=== PATIENT | female | born 1945 | race Caucasian/White ===

== ENCOUNTER 2024-05-13 05:45 | Emergency (ER) | payer MEDICARE, OTHER ==
[~2024-05-13] VITALS: Ht 165.1 cm; Wt 68.0 kg
[2024-05-13 06:15] LABS: Source, Urine Fem Cath
[2024-05-13 06:24] LABS: Appearance, Urine Clear (Clear); Bilirubin, Urine Neg (Neg); Blood, Urine Neg (Neg); Color, Urine Yellow (P-Yellow); Glucose Qualitative, Urine Neg (Neg); Ketones, Urine Neg (Neg); Leukocyte Esterase, Urine Neg (Neg); Nitrite, Urine Neg (Neg); Protein, Urine Neg (Neg); Urobilinogen, Urine NORM (Normal); pH, Urine 6.5 (5.0-8.0)
[2024-05-13 06:26] LABS: BASOPHILS ABSOLUTE AUTO 0.03 K/mm3 (0.00-0.23); BASOPHILS PERCENT AUTO 0 % (0-2); EOSINOPHILS ABSOLUTE AUTO 0.17 K/mm3 (0.00-0.68); EOSINOPHILS PERCENT AUTO 3 % (0-6); Hematocrit 41.7 % (33.0-51.0); IMMATURE GRAN ABSOLUTE AUTO 0.02 K/mm3 (0.00-0.10); IMMATURE GRAN PERCENT AUTO 0 % (0-1); LYMPHOCYTES ABSOLUTE AUTO 1.68 K/mm3 (0.84-5.20); LYMPHOCYTES PERCENT AUTO 25 % (21-46); MONOCYTES ABSOLUTE AUTO 0.68 K/mm3 (0.16-1.47); MONOCYTES PERCENT AUTO 10 % (4-13); Mean Corpuscular HGB 32.6 pg (26.0-34.0); Mean Corpuscular HGB Conc 33.6 g/dL (31.5-36.5); Mean Corpuscular Volume 97 fL (80-100); Mean Platelet Volume 9.3 fL (9.1-12.4); NEUTROPHILS ABSOLUTE AUTO 4.23 K/mm3 (1.96-9.15); NEUTROPHILS PERCENT AUTO 62 % (41-73); Platelet Count 196 K/mm3 (150-400); RDW Coefficient Variation 12.7 % (11.7-14.2); RDW Standard Deviation 45.6 fL (35.1-46.3); Red Blood Cell Count 4.29 M/mm3 (3.80-5.20); White Blood Cell Count 6.81 K/mm3 (4.00-11.30)
[2024-05-13 06:34] LABS: Albumin, Blood 3.8 g/dL (3.4-5.0); Albumin/Globulin Ratio 1.3 (0.8-1.8); Bilirubin, Total 0.8 mg/dL (0.1-1.0); Bun/Creatinine Ratio 19.4 (12.0-20.0); Calcium, Blood 9.4 mg/dL (8.5-10.1); Creatinine, Blood 1.03 mg/dL (0.40-1.00); Total Protein, Blood 6.8 g/dL (6.4-8.2)
[2024-05-13] MEDS ORDERED: RisperiDONE 1 MG Tab PO ONE (07:15)
== END 2024-05-13 10:18 | disposition home or self-care (01) ==
LOC: ER 05:45
PROVIDERS: Student in an Organized Health Care Education/Training Program
DX: S00.33XA Contusion of nose, initial encounter (principal); R04.0 Epistaxis; F03.90 Unspecified dementia, unspecified severity, without behavioral disturbance, psychotic disturbance, mood disturbance, and anxiety; E03.9 Hypothyroidism, unspecified; I10 Essential (primary) hypertension; W19.XXXA Unspecified fall, initial encounter; Z79.899 Other long term (current) drug therapy; Z88.0 Allergy status to penicillin; Z88.2 Allergy status to sulfonamides; Z88.1 Allergy status to other antibiotic agents; Z88.7 Allergy status to serum and vaccine; Z88.8 Allergy status to other drugs, medicaments and biological substances
CPT/HCPCS: 70450; 72125; 80053; 81003; 85025; 93005; 93010; 99284-25; A9270; P9612

== ENCOUNTER → 2024-05-25 | Outpatient (CLI) | payer MEDICARE, OTHER ==
[2024-05-26 11:38] LABS: Source, Urine Voided
[2024-05-26 13:06] LABS: Appearance, Urine Hazy (Clear); Bilirubin, Urine Neg (Neg); Blood, Urine Neg (Neg); Color, Urine Yellow (P-Yellow); Glucose Qualitative, Urine Neg (Neg); Ketones, Urine Neg (Neg); Leukocyte Esterase, Urine 3+ (Neg); Nitrite, Urine Neg (Neg); Protein, Urine 2+ (Neg); Specific Gravity, Urine 1.025 (1.003-1.022); Urobilinogen, Urine 1+ (Normal)
[2024-05-26 13:45] LABS: Amorphous Heavy (0-Heavy); Bacteria Many /hpf; Red Blood Cells, Urine 0-2 /hpf (0-2)
[2024-05-26 13:46] LABS: Mucus Heavy (0-Heavy); Squamous Epithelial Cells Few /hpf (Few)
== END | disposition home or self-care (01) ==
LOC: LAB 11:31 → LAB SHORT 11:31
PROVIDERS: Registered Nurse
DX: N39.0 Urinary tract infection, site not specified (principal)
CPT/HCPCS: 81001; 87086

== ENCOUNTER → 2024-06-03 | Outpatient (CLI) | payer MEDICARE, OTHER ==
[~2024-06-03] MED LIST: ACET325 PO; ACET500 PO; ALUM-MAG HYDROX30 M1 PO; CARVEDILOL6.25 MG PO; LOPE2C PO; NYSTRIT TOP; QUETIAPINE FUMA25 MG PO; SENNA LAXATIVE8.6 MG; TRAZ50 PO
[2024-06-03 10:50] LABS: Appearance, Urine Clear (Clear); Bilirubin, Urine Neg (Neg); Blood, Urine Neg (Neg); Color, Urine Yellow (P-Yellow); Glucose Qualitative, Urine Neg (Neg); Ketones, Urine Neg (Neg); Leukocyte Esterase, Urine 2+ (Neg); Nitrite, Urine Neg (Neg); Protein, Urine 2+ (Neg); Urobilinogen, Urine 1+ (Normal)
[2024-06-03 11:29] LABS: Bacteria Few /hpf; Red Blood Cells, Urine 0-2 /hpf (0-2); Squamous Epithelial Cells Few /hpf (Few)
== END | disposition home or self-care (01) ==
LOC: LAB 06:30 → LAB SHORT 06:30
PROVIDERS: Registered Nurse
DX: N39.0 Urinary tract infection, site not specified (principal)
CPT/HCPCS: 81001; 87086

== ENCOUNTER 2024-06-06 00:43 | Emergency (ER) | payer MEDICARE, OTHER ==
[~2024-06-06] VITALS: Ht 165.1 cm; Wt 79.4 kg
[2024-06-06 01:18] LABS: BASOPHILS ABSOLUTE AUTO 0.03 K/mm3 (0.00-0.23); BASOPHILS PERCENT AUTO 0 % (0-2); EOSINOPHILS ABSOLUTE AUTO 0.28 K/mm3 (0.00-0.68); EOSINOPHILS PERCENT AUTO 4 % (0-6); Hematocrit 38.6 % (33.0-51.0); Hemoglobin 12.8 g/dL (11.5-16.0); IMMATURE GRAN ABSOLUTE AUTO 0.03 K/mm3 (0.00-0.10); IMMATURE GRAN PERCENT AUTO 0 % (0-1); LYMPHOCYTES ABSOLUTE AUTO 1.86 K/mm3 (0.84-5.20); LYMPHOCYTES PERCENT AUTO 26 % (21-46); MONOCYTES ABSOLUTE AUTO 0.76 K/mm3 (0.16-1.47); MONOCYTES PERCENT AUTO 11 % (4-13); Mean Corpuscular HGB 32.3 pg (26.0-34.0); Mean Corpuscular HGB Conc 33.2 g/dL (31.5-36.5); Mean Corpuscular Volume 98 fL (80-100); Mean Platelet Volume 9.8 fL (9.1-12.4); NEUTROPHILS ABSOLUTE AUTO 4.15 K/mm3 (1.96-9.15); NEUTROPHILS PERCENT AUTO 58 % (41-73); Platelet Count 183 K/mm3 (150-400); RDW Coefficient Variation 12.8 % (11.7-14.2); RDW Standard Deviation 45.9 fL (35.1-46.3); Red Blood Cell Count 3.96 M/mm3 (3.80-5.20); White Blood Cell Count 7.11 K/mm3 (4.00-11.30)
[2024-06-06] MEDS ORDERED: TRAZ50 PO (01:24)
[2024-06-06] MEDS ORDERED: CARVEDILOL6.25 MG PO (01:25)
[2024-06-06] MEDS ORDERED: NYSTRIT TOP (01:25)
[2024-06-06] MEDS ORDERED: QUETIAPINE FUMA25 MG PO (01:25)
[2024-06-06] MEDS ORDERED: ACET325 PO (01:26)
[2024-06-06] MEDS ORDERED: ALUM-MAG HYDROX30 M1 PO (01:26)
[2024-06-06] MEDS ORDERED: SENNA LAXATIVE8.6 MG (01:27)
[2024-06-06] MEDS ORDERED: LOPE2C PO (01:27)
[2024-06-06 01:36] LABS: International Normalized Ratio 0.97; Prothrombin Time Results 10.4 Sec (9.7-11.5)
[2024-06-06 02:01] LABS: Bun/Creatinine Ratio 16.3 (12.0-20.0); Calcium, Blood 9.8 mg/dL (8.5-10.1); Creatinine, Blood 1.29 mg/dL (0.40-1.00); Free Thyroxine 1.18 ng/dL (0.70-1.60); Magnesium, Blood 2.5 mg/dL (1.6-2.4); Thyroid Stimulating Hormone 2.44 uIU/mL (0.360-4.800)
[2024-06-06] MEDS ORDERED: ACET500 PO (04:52)
[2024-06-08 02:19] LABS: MYOGLOBIN SERUM 164 ng/mL (<=58)
== END 2024-06-06 06:10 | disposition home or self-care (01) ==
LOC: ER 00:43
PROVIDERS: Emergency Medicine
DX: M25.561 Pain in right knee (principal); M25.552 Pain in left hip; M47.812 Spondylosis without myelopathy or radiculopathy, cervical region; I10 Essential (primary) hypertension; E03.9 Hypothyroidism, unspecified; Z88.0 Allergy status to penicillin; Z88.2 Allergy status to sulfonamides; Z88.1 Allergy status to other antibiotic agents; Z88.8 Allergy status to other drugs, medicaments and biological substances; Z88.7 Allergy status to serum and vaccine
CPT/HCPCS: 70450; 71260; 72125; 73560-RT; 74177; 80048; 82550; 82607; 83735; 83874; 83880; 84439; 84443; 85025; 85610; 85730; 99284-25; Q9967

== ENCOUNTER 2024-06-11 10:42 | Emergency (ER) | payer MEDICARE, OTHER ==
[~2024-06-11] VITALS: Ht 154.9 cm; Wt 68.0 kg
[2024-06-11] MEDS ORDERED: LORazepam 2 MG/ML 1ML Injection IV ONE (11:05)
[2024-06-11 11:29] LABS: BASOPHILS ABSOLUTE AUTO 0.03 K/mm3 (0.00-0.23); BASOPHILS PERCENT AUTO 0 % (0-2); EOSINOPHILS ABSOLUTE AUTO 0.23 K/mm3 (0.00-0.68); EOSINOPHILS PERCENT AUTO 3 % (0-6); Hematocrit 36.5 % (33.0-51.0); Hemoglobin 12.1 g/dL (11.5-16.0); IMMATURE GRAN ABSOLUTE AUTO 0.02 K/mm3 (0.00-0.10); IMMATURE GRAN PERCENT AUTO 0 % (0-1); LYMPHOCYTES ABSOLUTE AUTO 1.55 K/mm3 (0.84-5.20); LYMPHOCYTES PERCENT AUTO 23 % (21-46); MONOCYTES PERCENT AUTO 13 % (4-13); Mean Corpuscular HGB 32.1 pg (26.0-34.0); Mean Corpuscular HGB Conc 33.2 g/dL (31.5-36.5); Mean Corpuscular Volume 97 fL (80-100); Mean Platelet Volume 10.4 fL (9.1-12.4); NEUTROPHILS ABSOLUTE AUTO 4.02 K/mm3 (1.96-9.15); NEUTROPHILS PERCENT AUTO 60 % (41-73); Platelet Count 201 K/mm3 (150-400); RDW Standard Deviation 46.2 fL (35.1-46.3); Red Blood Cell Count 3.77 M/mm3 (3.80-5.20); White Blood Cell Count 6.75 K/mm3 (4.00-11.30)
[2024-06-11 11:37] LABS: Source, Urine Clean Catch
[2024-06-11 11:41] LABS: Appearance, Urine Clear (Clear); Blood, Urine Neg (Neg); Color, Urine Yellow (P-Yellow); Glucose Qualitative, Urine Neg (Neg); Ketones, Urine Neg (Neg); Leukocyte Esterase, Urine 1+ (Neg); Nitrite, Urine Neg (Neg); Protein, Urine 2+ (Neg); Urobilinogen, Urine 2+ (Normal)
[2024-06-11] MEDS ORDERED: Furosemide 10 MG / ML 2ML Vial IV ONE (11:50)
[2024-06-11 11:58] LABS: Bilirubin, Urine 1+ (Neg)
[2024-06-11 11:59] LABS: Albumin, Blood 3.4 g/dL (3.4-5.0); Albumin/Globulin Ratio 1.3 (0.8-1.8); Bilirubin, Total 0.5 mg/dL (0.1-1.0); Bun/Creatinine Ratio 15.1 (12.0-20.0); Calcium, Blood 9.5 mg/dL (8.5-10.1); Creatinine, Blood 1.52 mg/dL (0.40-1.00); Free Thyroxine 1.18 ng/dL (0.70-1.60); Globulin, Blood 2.7 g/dL (2.2-4.0); Potassium, Blood 3.9 mmol/L (3.5-5.5); Thyroid Stimulating Hormone 5.37 uIU/mL (0.360-4.800); Total Protein, Blood 6.1 g/dL (6.4-8.2)
[2024-06-11 11:59] LABS: Bacteria Many /hpf; Red Blood Cells, Urine 0-2 /hpf (0-2); Squamous Epithelial Cells Rare /hpf (Few); White Blood Cells, Urine 0-2 /hpf (0-5)
[2024-06-11] MEDS ORDERED: Nitrofurantoin/Nitrofuran Mac 100 MG Cap PO ONE (12:35)
[2024-06-11] MEDS ORDERED: NITR100CA PO (14:14)
[2024-06-11] MEDS ORDERED: DOXY100 PO (14:14)
[2024-06-12] MEDS ORDERED: MIRALAX17 GM PO (11:58)
== END 2024-06-11 15:34 | disposition home or self-care (01) ==
LOC: ER 10:42
PROVIDERS: Emergency Medicine
DX: N39.0 Urinary tract infection, site not specified (principal); E03.9 Hypothyroidism, unspecified; I10 Essential (primary) hypertension; Z79.899 Other long term (current) drug therapy; Z88.2 Allergy status to sulfonamides; Z88.0 Allergy status to penicillin; Z88.1 Allergy status to other antibiotic agents; Z88.7 Allergy status to serum and vaccine; Z88.8 Allergy status to other drugs, medicaments and biological substances
CPT/HCPCS: 71045; 80053; 81001; 83880; 84439; 84443; 85025; 87086; 93005; 93010; 93971; 96374; 96375; 99285-25; A9270; J1940; J2060; P9612

== ENCOUNTER 2024-06-12 10:12 | Emergency (ER) | payer MEDICARE, OTHER ==
[~2024-06-12] VITALS: Ht 162.6 cm; Wt 79.4 kg
[~2024-06-12 10:12] MED LIST changes: +DOXY100 PO; +NITR100CA PO
[2024-06-12] MEDS ORDERED: MIRALAX17 GM PO (11:58)
== END 2024-06-12 16:04 | disposition home or self-care (01) ==
LOC: ER 10:12
DX: S12.301A Unspecified nondisplaced fracture of fourth cervical vertebra, initial encounter for closed fracture (principal); F03.90 Unspecified dementia, unspecified severity, without behavioral disturbance, psychotic disturbance, mood disturbance, and anxiety; I10 Essential (primary) hypertension; Z88.0 Allergy status to penicillin; Z88.2 Allergy status to sulfonamides; Z88.1 Allergy status to other antibiotic agents; Z88.7 Allergy status to serum and vaccine; Z88.8 Allergy status to other drugs, medicaments and biological substances; Z79.899 Other long term (current) drug therapy; Z91.81 History of falling; W18.30XA Fall on same level, unspecified, initial encounter
CPT/HCPCS: 70450; 72125; 99284-25

== ENCOUNTER 2024-07-07 17:48 | Inpatient (IN) | payer MEDICARE, OTHER ==
[~2024-07-07] VITALS: Ht 172.7 cm; Wt 72.6 kg
[~2024-07-07 17:48] MED LIST changes: +MIRALAX17 GM PO
[2024-07-07] MEDS ORDERED: Diphth,Pertuss(Acell),Tet Vac 0.5 ML VIAL IM ONE (19:15)
[2024-07-07] MEDS ORDERED: FUROSEMIDE40 MG PO (19:17)
[2024-07-07 19:58] LABS: BASOPHILS ABSOLUTE AUTO 0.05 K/mm3 (0.00-0.23); BASOPHILS PERCENT AUTO 0 % (0-2); EOSINOPHILS ABSOLUTE AUTO 0.26 K/mm3 (0.00-0.68); EOSINOPHILS PERCENT AUTO 2 % (0-6); Hematocrit 40.9 % (33.0-51.0); Hemoglobin 13.7 g/dL (11.5-16.0); IMMATURE GRAN ABSOLUTE AUTO 0.12 K/mm3 (0.00-0.10); IMMATURE GRAN PERCENT AUTO 1 % (0-1); LYMPHOCYTES ABSOLUTE AUTO 1.72 K/mm3 (0.84-5.20); LYMPHOCYTES PERCENT AUTO 13 % (21-46); MONOCYTES ABSOLUTE AUTO 1.38 K/mm3 (0.16-1.47); MONOCYTES PERCENT AUTO 11 % (4-13); Mean Corpuscular HGB 32.2 pg (26.0-34.0); Mean Corpuscular HGB Conc 33.5 g/dL (31.5-36.5); Mean Corpuscular Volume 96 fL (80-100); Mean Platelet Volume 9.6 fL (9.1-12.4); NEUTROPHILS ABSOLUTE AUTO 9.28 K/mm3 (1.96-9.15); NEUTROPHILS PERCENT AUTO 73 % (41-73); Platelet Count 177 K/mm3 (150-400); RDW Coefficient Variation 13.2 % (11.7-14.2); RDW Standard Deviation 46.4 fL (35.1-46.3); Red Blood Cell Count 4.25 M/mm3 (3.80-5.20); White Blood Cell Count 12.81 K/mm3 (4.00-11.30)
[2024-07-07 20:03] LABS: Source, Urine Clean Catch
[2024-07-07 20:06] LABS: Appearance, Urine Cloudy (Clear); Bilirubin, Urine Neg (Neg); Blood, Urine 4+ (Neg); Color, Urine Yellow (P-Yellow); Glucose Qualitative, Urine Neg (Neg); Ketones, Urine Neg (Neg); Leukocyte Esterase, Urine 3+ (Neg); Nitrite, Urine Neg (Neg); Protein, Urine 2+ (Neg); Urobilinogen, Urine 3+ (Normal)
[2024-07-07 20:19] LABS: White Blood Cells, Urine TNTC /hpf (0-5)
[2024-07-07 20:19] LABS: Albumin, Blood 2.5 g/dL (3.4-5.0); Albumin/Globulin Ratio 0.7 (0.8-1.8); Bilirubin, Total 0.8 mg/dL (0.1-1.0); Calcium, Blood 9.4 mg/dL (8.5-10.1); Creatinine, Blood 1.23 mg/dL (0.40-1.00); Globulin, Blood 3.7 g/dL (2.2-4.0); Potassium, Blood 3.7 mmol/L (3.5-5.5); Total Protein, Blood 6.2 g/dL (6.4-8.2)
[2024-07-07 20:21] LABS: Bacteria Many /hpf; Squamous Epithelial Cells Few /hpf (Few); Transitional Epithelial Cells Few /hpf (0-Rare)
[2024-07-07] MEDS ORDERED: Nitrofurantoin/Nitrofuran Mac 100 MG Cap PO ONE (21:15)
[2024-07-07] MEDS ORDERED: CefTRIAXone Sodium 1,000 MG in NS 50 ML IV ONE (21:20)
[2024-07-07 22:02] LABS: CORONAVIRUS COVID-19 AG Negative (NEGATIVE); INFLUENZA A AG Negative (NEGATIVE); INFLUENZA B AG Negative (NEGATIVE)
[2024-07-08] VITALS (19 sets, daily range): BP systolic 95–221; BP diastolic 41–153
--- NOTE | 2024-07-08 04:54 | NUR ---
SHIFT SUMMARY 79 YR F ADMITTED TO MEDICAL FLOOR THIS SHIFT. DNR. PT HAS A RIGHT HIP FX AND IS IN A GREAT DEAL OF PAIN WITH ANY MOVEMENT AT ALL. OF NOW SHE HAS NO PAIN MEDS AVAILABLE AND HOSPITALIST IS UNAVAILABLE. PT HAS SEVERE DIMENTIA AND IS UNABLE TO COMMUNICATE VERBALLY BUT SHE YELLS OUT IN PAIN ANY TIME SHE IS TOUCHED. DAUGHTER STATES HER DIMENTIA HAS GOTTEN ALOT WORSE LATELY. SHE HAS LARGE BLISTERS ON BOTH OF HER HEELS. MEPILEX HEEL PROTECTORS APPLIED. DAUGHTER STAYED IN ROOM THROUGHOUT THE NIGHT. WILL CONTINUE TO MONITOR. BED IN LOW POSITION AND CALL LIGHT IN REACH.
[2024-07-08 05:08] LABS: BASOPHILS ABSOLUTE AUTO 0.03 K/mm3 (0.00-0.23); BASOPHILS PERCENT AUTO 0 % (0-2); EOSINOPHILS ABSOLUTE AUTO 0.26 K/mm3 (0.00-0.68); EOSINOPHILS PERCENT AUTO 3 % (0-6); Hematocrit 39.7 % (33.0-51.0); Hemoglobin 12.9 g/dL (11.5-16.0); IMMATURE GRAN PERCENT AUTO 1 % (0-1); LYMPHOCYTES PERCENT AUTO 14 % (21-46); MONOCYTES ABSOLUTE AUTO 1.21 K/mm3 (0.16-1.47); MONOCYTES PERCENT AUTO 12 % (4-13); Mean Corpuscular HGB 31.9 pg (26.0-34.0); Mean Corpuscular HGB Conc 32.5 g/dL (31.5-36.5); Mean Corpuscular Volume 98 fL (80-100); Mean Platelet Volume 10.3 fL (9.1-12.4); NEUTROPHILS ABSOLUTE AUTO 7.14 K/mm3 (1.96-9.15); NEUTROPHILS PERCENT AUTO 70 % (41-73); Platelet Count 169 K/mm3 (150-400); RDW Coefficient Variation 12.9 % (11.7-14.2); RDW Standard Deviation 46.2 fL (35.1-46.3); Red Blood Cell Count 4.05 M/mm3 (3.80-5.20); White Blood Cell Count 10.14 K/mm3 (4.00-11.30)
[2024-07-08 06:18] LABS: Calcium, Blood 9.2 mg/dL (8.5-10.1); Creatinine, Blood 1.18 mg/dL (0.40-1.00); Potassium, Blood 4.1 mmol/L (3.5-5.5)
[2024-07-08] MEDS ORDERED: FentaNYL Citrate 50 MCG/ML 2 ML Injection IV PRN (07:45)
[2024-07-08] MEDS ORDERED: Enoxaparin 40 MG/0.4 ML SYR SC SCH (09:00)
[2024-07-08] MEDS ORDERED: FentaNYL Citrate 50 MCG/ML 2 ML Injection ONE ×2 (12:32→14:43)
[2024-07-08] MEDS ORDERED: propofoL 20 ML IV ONE (12:32)
[2024-07-08] MEDS ORDERED: Dexamethasone Sod Phos 10 MG/ML 1ML VIAL ONE (12:33)
[2024-07-08] MEDS ORDERED: Ondansetron HCl 2 MG / ML 2ML Vial ONE (12:33)
[2024-07-08] MEDS ORDERED: Lidocaine HCl 2% 20 ML MDV ONE (12:34)
[2024-07-08] MEDS ORDERED: Lactated Ringer's 1,000 ML IV SCH ×2 (12:35→18:45)
[2024-07-08] MEDS ORDERED: Ropivacaine 0.5% HCl/Pf 123.125 MG,EPINEPHrine HCL 0.25 MG,Ketorolac Tromethamine 15 MG... INFIL SCH (14:00)
[2024-07-08] MEDS ORDERED: Tranexamic Acid 1,000 MG in NS 100 ML IV SCH (14:00)
[2024-07-08] MEDS ORDERED: Phenylephrine HCl 100 MCG/ML-NS 10MLSYR (1MG/10ML) ONE (14:43)
--- NOTE | 2024-07-08 17:40 | NUR ---
SHIFT SUMMARY: PT ARRIVED BACK FROM SURGERY AT 1630. PT RESPONDS TO VERBAL STIMULI. RADIOLOGY HERE TO DO X-RAYS. ASSISTED RADOLOGY TECH WITH POSITIONING PT. PT IS SHOWING S/S F PAIN WITH MOVEMENT BUT DOES NOT SHW S/S OF PAIN WHEN AT REST. WHEN CMPLETED PT POSITIONED N LEFT SIDE. FEET FLOATED ON PILLOWS. VITALS TAKEN AND WNL. PT ON RA RR ARE E/U. AQUACELL DRESSING IN PLACE TO R HIP AND CDI. FAMILY ARE IN WAITING AREA AND UPDATED WITH PT STATUS. FAMILY EDUCATED ON POC. FAMILY LEFT TO GO EAT DINNER. PER DAUGHTER KHADAR, SHE WOULD LIKE TO BE NOTIFIED IF HER MOM NEEDS ADDITONAL EMOTIONAL SUPPORT. HER NUMBER IS IN SYSTEM AND ON WHITE BOARD IN ROOM.
[2024-07-08] MEDS ORDERED: Tranexamic Acid 100 ML IV ONE (17:55)
[2024-07-08] MEDS ORDERED: NS 250 ML IV PRN (18:05)
[2024-07-08] MEDS ORDERED: CefTRIAXone Sodium 1,000 MG in NS 100 ML IV SCH (21:00)
[2024-07-09 03:30] VITALS: BP 112/90
[2024-07-09 05:28] LABS: BASOPHILS ABSOLUTE AUTO 0.01 K/mm3 (0.00-0.23); BASOPHILS PERCENT AUTO 0 % (0-2); EOSINOPHILS ABSOLUTE AUTO 0.01 K/mm3 (0.00-0.68); EOSINOPHILS PERCENT AUTO 0 % (0-6); Hematocrit 35.5 % (33.0-51.0); Hemoglobin 11.9 g/dL (11.5-16.0); IMMATURE GRAN ABSOLUTE AUTO 0.16 K/mm3 (0.00-0.10); IMMATURE GRAN PERCENT AUTO 1 % (0-1); LYMPHOCYTES PERCENT AUTO 9 % (21-46); MONOCYTES ABSOLUTE AUTO 0.83 K/mm3 (0.16-1.47); MONOCYTES PERCENT AUTO 7 % (4-13); Mean Corpuscular HGB 32.7 pg (26.0-34.0); Mean Corpuscular HGB Conc 33.5 g/dL (31.5-36.5); Mean Corpuscular Volume 98 fL (80-100); NEUTROPHILS ABSOLUTE AUTO 9.38 K/mm3 (1.96-9.15); NEUTROPHILS PERCENT AUTO 82 % (41-73); Platelet Count 176 K/mm3 (150-400); RDW Coefficient Variation 12.9 % (11.7-14.2); RDW Standard Deviation 46.1 fL (35.1-46.3); Red Blood Cell Count 3.64 M/mm3 (3.80-5.20); White Blood Cell Count 11.39 K/mm3 (4.00-11.30)
[2024-07-09 05:58] LABS: Bun/Creatinine Ratio 25.2 (12.0-20.0); Calcium, Blood 9.1 mg/dL (8.5-10.1); Creatinine, Blood 1.15 mg/dL (0.40-1.00); Potassium, Blood 5.2 mmol/L (3.5-5.5)
--- NOTE | 2024-07-09 06:23 | NUR ---
SHIFT SUMMARY PT VERY DROWSY THROUGH THE NIGHT. NOT ANSWERING ANY QUESTIONS, DOES NOT APPEAR ORIENTED. PT CRIES OUT WITH ANY ACTIVITY OR CARE- CALMS WITH VERBAL REASSUREANCE AND HAND HOLDING. PT QUICKLY BACK TO SLEEP. AT APPROX 0400, PT CRYING OUT WHEN ALONE IN ROOM, PT STATING "IT HURTS." MEDICATED WITH FENTANYL PER EMAR. PT RESTING AFTER DOSE GIVEN. UNABLE TO GIVE PT ORAL FLUIDS- PT FIGHTING/ TENSE WITH ORAL CARE. THIS AM PT STATED "YES" WHEN ASKED IF SHE WANTED SOME COLD WATER TO DRINK, BUT TENSED AND CLOSED LIPS WHEN OFFERED FLUIDS. IVF INFUSING PER ORDER. O2 WEANED FROM 2L TO 1LNC. SANCHES CATHETER WITH DARK DAVI URINE, ONLY 250ML DRAINED. PT TURNED AND REPOSITIONED THROUGHOUT THE NIGHT. DRESSING TO ANTERIOR HIP C/D/I. BED ALARM ON, BED IN LOWEST POSITION, CALL LIGHT WITHIN REACH, SIDE RAILS UP X2.
[2024-07-09 07:31] VITALS: BP 107/73
[2024-07-09 15:28] VITALS: BP 132/106
[2024-07-09] MEDS ORDERED: HYDROmorphone HCl/Pf 1MG SYR IV PRN (16:00)
[2024-07-09] MEDS ORDERED: Meropenem 1,000 MG in NS 100 ML IV SCH (16:00)
--- NOTE | 2024-07-09 19:24 | NUR ---
SHIFT SUMMARY PATIENT MEDICATED FOR PAIN THROUGHOUT SHIFT. SCANT URINE OUTPUT. DR MCGOVERN MADE AWARE. CONTACT PRECUATIONS FOR ESBL. SHE IS REFUSING EVENWATER, ONLY TOOK 2 SIPS TODAY. PAIN MEDICATION CHANGED TO DILAUDED THIS AFTERNOON AND PATIENT WAS ABLE TO REST COMFORTABLY IN BED IN A RELAXED QUIET STATE. BED IN LOW POSITION. FREQEUNT ROUNDING PROVIDED, FAMILY AT BEDSIDE.
[2024-07-09 19:52] VITALS: BP 93/35
[2024-07-09 19:53] VITALS: BP 98/37
[2024-07-09 20:13] VITALS: BP 102/56
[2024-07-10 01:34] VITALS: BP 112/61
[2024-07-10] MEDS ORDERED: ALUM-MAG HYDROX30 M1 PO (01:57)
[2024-07-10] MEDS ORDERED: FURO40 PO (02:00)
[2024-07-10] MEDS ORDERED: SEROQUEL25 MG PO (02:03)
[2024-07-10] MEDS ORDERED: SENNA LAXATIVE8.6 MG PO (02:05)
[2024-07-10 05:34] VITALS: BP 102/45
--- NOTE | 2024-07-10 06:23 | NUR ---
SHIFT SUMMARY DRESSING TO RIGHT ANTERIOR HIP REMAINS C/D/I. MEPILEX INTACT TO NAHID. HEELS UNDERNEATH LISA HOSE. MEDICATED FOR PAIN PER EMAR. PT DROWSY AFTER PAIN MEDS GIVEN. PT CONTINUES TO COUNT AND NAME MONTHS- THIS IS MOST OF HER VOCALIZATION. PT DOES SAY "NO" AND "STOP THAT" WITH SOME CARE, SUCH VITAL SIGNS AND REPOSITIONING. PT REFUSING MOST OFFERS OF PO FLUIDS, BUT DID DRINK ABOUT 1/2 OF AN 8 OUNCE BOTTLE OF ENSURE. URINE OUTPUT REAINS LOW. SANCHES DRAINING DAVI COLOR URINE. CONTACT ISOLATION MAINTAINED FOR ESBL+. BED IN LOWEST POSITION, CALL LIGHT WITHIN REACH, SIDE RAILS UP X2.
[2024-07-10 06:27] LABS: BASOPHILS ABSOLUTE AUTO 0.04 K/mm3 (0.00-0.23); BASOPHILS PERCENT AUTO 0 % (0-2); EOSINOPHILS ABSOLUTE AUTO 0.22 K/mm3 (0.00-0.68); EOSINOPHILS PERCENT AUTO 2 % (0-6); Hematocrit 33.7 % (33.0-51.0); Hemoglobin 10.6 g/dL (11.5-16.0); IMMATURE GRAN ABSOLUTE AUTO 0.18 K/mm3 (0.00-0.10); IMMATURE GRAN PERCENT AUTO 2 % (0-1); LYMPHOCYTES ABSOLUTE AUTO 1.52 K/mm3 (0.84-5.20); LYMPHOCYTES PERCENT AUTO 16 % (21-46); MONOCYTES ABSOLUTE AUTO 1.08 K/mm3 (0.16-1.47); MONOCYTES PERCENT AUTO 12 % (4-13); Mean Corpuscular HGB 31.4 pg (26.0-34.0); Mean Corpuscular HGB Conc 31.5 g/dL (31.5-36.5); Mean Corpuscular Volume 100 fL (80-100); NEUTROPHILS ABSOLUTE AUTO 6.34 K/mm3 (1.96-9.15); NEUTROPHILS PERCENT AUTO 68 % (41-73); Platelet Count 193 K/mm3 (150-400); RDW Coefficient Variation 13.2 % (11.7-14.2); RDW Standard Deviation 48.3 fL (35.1-46.3); Red Blood Cell Count 3.38 M/mm3 (3.80-5.20); White Blood Cell Count 9.38 K/mm3 (4.00-11.30)
[2024-07-10 06:45] LABS: Bun/Creatinine Ratio 24.2 (12.0-20.0); Calcium, Blood 8.9 mg/dL (8.5-10.1); Creatinine, Blood 1.28 mg/dL (0.40-1.00); Potassium, Blood 4.1 mmol/L (3.5-5.5)
[2024-07-10 07:50] VITALS: BP 107/46
--- NOTE | 2024-07-10 13:51 | NUR ---
Met with pt's daughter Liam today after assessing the patient. Patient denies pain at this time, oriented to self, and pleasant. Liam is tearful, talks about the patient's decline. The family made the decision to place the patient at [facility] 2 months ago given her increasing dementia. After several falls, the patient became wheelchair bound, and x-ray showed R hip fracture. This was repaired on 07/08, and pt is continuing to refuse food or fluids. The family is debating next steps, possibly will change the plan to comfort care due to pt's symptoms. We talked about hospice, and they have been told by the facility the patient can return, with or without hospice. Palliative care will contine with supportive visits.
[2024-07-10] MEDS ORDERED: Lactated Ringer's 1,000 ML IV SCH (14:50)
[2024-07-10 15:27] VITALS: BP 110/52
[2024-07-10] MEDS ORDERED: Acetaminophen 325 MG TABLET PO PRN (17:10)
[2024-07-10] MEDS ORDERED: HYDROmorphone HCl/Pf 1MG SYR IV PRN (17:15)
--- NOTE | 2024-07-10 18:10 | NUR ---
SHIFT SUMMARY PATIENT IN BED THIS SHIFT. ORIENTED TO SELF AND SOMETIMES FAMILY. INFUSING 1 LITER FLUID, TOLERATING ABX WELL. CONTINUE ON CONTACT ISOLATION FOR ESBL. SANCHES IN PLACE, FREELY DRAINING TO GRAVITY, DAVI COLORED URINE. DR JACOBS RECOMMENDED TO KEEP SANCHES IN PLACE THIS SHIFT. HEEL PROTECTORS IN PLACE TO BILTERAL HEELS, LISA HOSE ON. DID NOT ATTEMPT TO STAND PATIENT TODAY. YELLS OUT WITH TURNS AND POSITIONING. GIVEN PAIN MEDS PER MAR, DR CHAVEZAYED TO GIVE RANGE FOR DILAUDED AND ADD APAP. NOT ABLE TO MAKE NEEDS KNOWN. CALL LIGHT IN REACH, CARES ONGOING.
[2024-07-10 19:29] VITALS: BP 123/82
[2024-07-10] MEDS ORDERED: Lactobacil 2-S.Thermo-Bifido 1 1 Cap PO SCH (21:00)
[2024-07-11 03:41] VITALS: BP 119/56
[2024-07-11 05:12] LABS: BASOPHILS ABSOLUTE AUTO 0.04 K/mm3 (0.00-0.23); BASOPHILS PERCENT AUTO 1 % (0-2); EOSINOPHILS ABSOLUTE AUTO 0.34 K/mm3 (0.00-0.68); EOSINOPHILS PERCENT AUTO 5 % (0-6); Hematocrit 34.5 % (33.0-51.0); Hemoglobin 10.7 g/dL (11.5-16.0); IMMATURE GRAN ABSOLUTE AUTO 0.17 K/mm3 (0.00-0.10); IMMATURE GRAN PERCENT AUTO 3 % (0-1); LYMPHOCYTES ABSOLUTE AUTO 1.24 K/mm3 (0.84-5.20); LYMPHOCYTES PERCENT AUTO 19 % (21-46); MONOCYTES PERCENT AUTO 11 % (4-13); Mean Corpuscular HGB 31.4 pg (26.0-34.0); Mean Corpuscular Volume 101 fL (80-100); Mean Platelet Volume 9.7 fL (9.1-12.4); NEUTROPHILS ABSOLUTE AUTO 4.11 K/mm3 (1.96-9.15); NEUTROPHILS PERCENT AUTO 62 % (41-73); Platelet Count 191 K/mm3 (150-400); RDW Coefficient Variation 12.9 % (11.7-14.2); RDW Standard Deviation 47.9 fL (35.1-46.3); Red Blood Cell Count 3.41 M/mm3 (3.80-5.20)
--- NOTE | 2024-07-11 05:37 | NUR ---
SHIFT SUMMARY PT CRIES OUT/ YELLS WITH MOST CARE PROVIDED. PT TURNED AND REPOSITIONED THROUGH THE NIGHT, KEEPING HEELS FLOATED WITH PILLOWS. PT OPENS HER EYES TO SOUND, BUT DOES NOT FOLLOW MOST COMMANDS. PT STATES, "JUST LEAVE NOW" REPEATEDLY WITH MOST INTERACTION. TRIED TO ENCOURAGE PO FLUIDS, BUT PT ONLY TOOK A TOTAL OF 2 SIPS OF WATER THROUGH THE NIGHT. 2 LITERS IV LR INFUSED- STARTED PRIOR SHIFT. URINE OUTPUT IMPROVED TO 500 ML OUT THIS SHIFT. PT MEDICATED FOR PAIN USING FLACC SCALE PER EMAR. SLEPT LONG INTERVALS THROUGH NIGHT. BED IN LOWEST POSITION, CALL LIGHT WITHIN REACH, SIDE RAILS UP X2.
[2024-07-11 06:00] LABS: Bun/Creatinine Ratio 20.6 (12.0-20.0); Calcium, Blood 8.8 mg/dL (8.5-10.1); Creatinine, Blood 1.02 mg/dL (0.40-1.00); Potassium, Blood 5.1 mmol/L (3.5-5.5)
[2024-07-11 07:24] VITALS: BP 127/86
--- NOTE | 2024-07-11 11:24 | NUR ---
MORNING NOTE THIS RN ASSUMED CARE AT APPROX 0715. PATIENT LETHARGIC, EASILY AROUSABLE WITH STIMULI. MOANS/YELLS OUT WITH STIMULI. DOES EXPERIENCE PERIODS OF INCREASED WAKEFULNESS. ALERT AND ORIENTED TO SELF ONLY. UNABLE TO FOLLOW COMMANDS. VSS. R DAYNA HIP ARTHROPLASTY 07/08 - AQUACEL DRESSING C/D/I. MANAGING PAIN PER EMAR. BEDBATH PERFORMED THIS MORNING. Q2H REPOSITIONING. SANCHES CATHETER IN PLACE - DRAINING DAVI URINE TO GRAVITY. ENCOURAGING PO INTAKE DURING PERIODS OF INCREASED ALERTNESS. FAMILY AT BEDSIDE. CALL LIGHT IN REACH.
[2024-07-11 15:40] VITALS: BP 123/52
--- NOTE | 2024-07-11 17:34 | NUR ---
SHIFT SUMMARY NO ACUTE CHANGES SINCE MORNING NOTE. PATIENT SLEPT THROUGHOUT DAY, EASILY AROUSABLE WITH VERBAL STIMULI. CONTINUES TO YELL OUT WITH MOST STIMULI. FEARFUL OF STAFF AND INTERVENTIONS OF CARE, EASES WITH REDUCED STIMULI. PERIODS OF INCREASED WAKEFULNESS - ENCOURAGING PO INTAKE. FAMILY AT BEDSIDE THROUGHOUT DAY. VSS. SBP 120s. MAP >65. ON ROOM AIR, SATs >90%. RR EVEN, UNLABORED. SANCHES CATHETER DRAINING DAVI URINE TO GRAVITY. BEDBATH PERFORMED. AQUACEL DX TO R HIP C/D/I. MANAGING PAIN PER EMAR. Q2H REPOSITIONING. CALL LIGHT IN REACH. BED ALARM ON. WILL CONTINUE TO MONITOR AND REPORT TO ONCOMING RN.
[2024-07-11 19:59] VITALS: BP 121/58
--- NOTE | 2024-07-12 05:27 | NUR ---
SHIFT SUMMARY PT MORE ALERT AT THE START OF SHIFT- VISITING WITH DAUGHTER, EATING A COUPLE OF BITES OF GRAPES, AND DRINKING A COUPLE OF SIPS OF WATER. PT MORE IRRITABLE AFTER DAUGHTER LEFT. PT FEARFUL WITH ALL CARE, CRIES AND YELLS. PT REFUSED ANY MORE PO FLUIDS OR FOOD. PT REPOSITIONED THROUGH THE NIGHT. LISA HOSE REMOVED AND LEFT OFF. SCD'S ON BLE'S. MEPELEXES INTACT TO BILAT HEELS. HEELS FLOATED OFF OF BED WITH PILLOWS. SANCHES DRAINING LIGHT DAVI URINE. MEDICATED FOR PAIN WITH DILAUDID PER EMAR. PT SLEPT LONG INTERVALS THROUGH THE NIGHT. BED IN LOWEST POSITION, CALL LIGHT WITHIN REACH, SIDERAILS UP X2.
[2024-07-12 05:36] VITALS: BP 136/80
[2024-07-12 07:44] VITALS: BP 110/82
[2024-07-12 16:10] VITALS: BP 122/52
--- NOTE | 2024-07-12 17:52 | NUR ---
SHIFT SUMMARY: PT ORIENTED TO SELF. YELLS OUT AND ANXIOUS WITH ANY AND ALL CARE. ADMITTED FOR R. HIP FX. SURGERY COMPLETED June. AQUACEL DRESSING C/D/I. SANCHES IN PLACE DRAINING DAVI URINE TO GRAVITY. MEDICATED FOR PAIN TWICE THIS SHIFT. ON CONTACT FOR ESBL IN URINE. PLAN TO DISCHARGE ON HOSPICE TOMORROW BACK TO [facility]. FAMILY IN ROOM T/O SHIFT. CALL LIGHT IN REACH. BED IN LOWEST POSITION.
--- NOTE | 2024-07-13 04:38 | NUR ---
SHIFT SUMMARY ADMITTED FOR RIGHT HIP FRACTURE. DNR CODE. RIGHT DAYNA ARTHROPLASTY PERFORMED ON 07/08/23. ORTHO CONSULT IS DR. RAMÍREZ. SANCHES IN PLACE. IV ANTIB RX ARE SCHEDULED. PLAN IS FOR DC TODAY TO HER HOME FACILITY "[facility]" ON HOSPICE. SHE IS ON A REGULAR DIET, BUT REFUSES MOST INTAKE. SHE REFUSES MEDICATIONS AND VITALS. PALLIATIVE CARE IS CONSULTED. ON RA. SHE SCREAMS AND CRIES WITH EVEN THE SLIGHTEST TOUCH. HX OF DEMENTIA. I HAVE MEDICATED HER FOR PAIN THIS SHIFT, SEE EMAR.
[2024-07-13] MEDS ORDERED: LOPE2C PO (07:25)
[2024-07-13] MEDS ORDERED: NITR100CA PO (07:26)
[2024-07-13] MEDS ORDERED: VISBIOME 112.51 EACH PO (07:26)
--- NOTE | 2024-07-13 10:34 | NUR ---
DISCHARGE: PT D/C @1000 VIA GURNEY TRANSPORT BACK TO [facility] HOS[facility]ICE. HOSPICE NURSE TO MEET DAUGHTER AT FACILITY @ 1030. SANCHES EMPTIED PRIOR TO D/C WITH AM AMOUNT OF 400mL. IV REMOVED BY THIS RN W/O COMPLICATIONS. NO QUESTIONS AT TIME OF D/C.
== END 2024-07-13 10:13 | disposition hospice, home (50) | DRG 521 ==
LOC: ER 17:48 → MEDS 17:49 → SURS 17:49 → MEDS 07-08 01:50 → ENPENDDIS 07-13 07:08 → MEDS 07-13 10:13
PROVIDERS: Family Medicine; Orthopaedic Surgery; Student in an Organized Health Care Education/Training Program; ADMIT Internal Medicine
PROC: 0SRR0J9 Replacement of Right Hip Joint, Femoral Surface with Synthetic Substitute, Cemented, Open Approach (ICD-10-PCS; principal; 2024-07-08 13:00)
DX: S72.001A Fracture of unspecified part of neck of right femur, initial encounter for closed fracture (principal); G92.8 Other toxic encephalopathy; N39.0 Urinary tract infection, site not specified; F01.54 Vascular dementia, unspecified severity, with anxiety; F01.53 Vascular dementia, unspecified severity, with mood disturbance; Z16.12 Extended spectrum beta lactamase (ESBL) resistance; Z66 Do not resuscitate; E03.9 Hypothyroidism, unspecified; R29.6 Repeated falls; K11.8 Other diseases of salivary glands; R54 Age-related physical debility; Z88.0 Allergy status to penicillin; Z88.2 Allergy status to sulfonamides; Z88.1 Allergy status to other antibiotic agents; Z88.8 Allergy status to other drugs, medicaments and biological substances; Z88.7 Allergy status to serum and vaccine; W18.30XA Fall on same level, unspecified, initial encounter
CPT/HCPCS: 36415; 70450; 71045; 72125; 73502; 76770; 80048; 80053; 81001; 82550; 85025; 87077; 87086; 87186; 87428-QW; 93005; 93010; 99285-25; A9270; C1713; C1776; J0171; J0696; J0735; J1100; J1171; J1885; J2185; J2371; J2405; J2704; J2795; J3010; J7050; J7120; P9612